=== PATIENT | male | born 1960 | race Caucasian/White ===

== ENCOUNTER → 2018-09-28 | Outpatient (CLI) | payer BC ==
--- NOTE | 2018-09-28 15:15 | CTL ---
EXAMINATION TYPE: CT Low Dose Lung DATE OF EXAM ORDERED: 09/28/2018 HISTORY: Long-term tobacco use. Lung cancer screening CT DLP: [address] CTDI: 1.76 mGy Automated exposure control for dose reduction was used. SCREENING VISIT: Initial study COMPARISON: None TECHNIQUE: Low dose computed tomography scan was performed through the chest at 1 mm thick sections a nd reconstructed images in the coronal plane at [address] DIAGNOSTIC QUALITY: Satisfactory FINDINGS: LUNG NODULES: None. Some tree-in-bud nodularity inferior lateral aspect right upper lobe near coronal series 8 image 37 i s present. No nodules greater than 4 mm in size are seen. LUNGS: COPD: Severity: Mild to moderate most prominent in apices with bilateral bleb formation Fibrosis: Severity: Mild biapical pleural/parenchymal scarring. Additional focal moderate scarring in the lingula just above diaphragm axial image 251. Lymph nodes: No greater than 1 cm Other findings: Ascending aorta measures up to 3.7 cm in diameter axial image 30 series 3. Prominent right and left pulmonary arteries are noted. Suspect underlying pulmonary artery hypertension. BILATERAL PLEURAL SPACE: Effusion: None Calcification: None Thickening: None Pneumothorax: None HEART: Heart Size: Normal Coronary calcification: Moderate Pericardial effusion: None OTHER FINDINGS: Upper abdomen: None Bony thorax: Exaggerated thoracic kyphosis upper thoracic spine with mild multilevel anterior spurrin g. Supraclavicular region: None Other: None IMPRESSION: No suspicious nodules. Possible acute atypical infection inferior lateral right upper lob e. Correlate clinically. FOLLOW UP CT CHEST RECOMMENDATION: Annual low-dose lung screening CT CT LUNG RAD: Lung-Rad 2 Benign Appearance or Behavior
== END | disposition home or self-care (01) ==
LOC: RADCTMAIN 14:22
PROVIDERS: ATTEND Family Medicine
DX: Z12.2 Encounter for screening for malignant neoplasm of respiratory organs (principal); Z87.891 Personal history of nicotine dependence

== ENCOUNTER → 2020-07-26 | Outpatient (CLI) | payer BC ==
--- NOTE | 2020-07-26 13:55 | CTL ---
EXAMINATION TYPE: CT Low Dose Lung DATE OF EXAM ORDERED: 07/26/2020 HISTORY: History of tobacco use. Lung cancer screening CT DLP: [address] CTDI: 1.76 mGy Automated exposure control for dose reduction was used. SCREENING VISIT: Yes COMPARISON: Low-dose lung CT 09/28/2018 TECHNIQUE: Low dose computed tomography scan was performed through the chest at 1 mm thick sections a nd reconstructed images in the coronal plane at [address] DIAGNOSTIC QUALITY: Satisfactory FINDINGS: LUNG NODULES: No suspicious pulmonary nodules. There are some redemonstrated are slightly more conspicuous somewhat linear opacities of the lung bas es along the vasculature or bronchials, at the inferomedial right middle lobe (5:236-222), anterior i nferior left upper lobe (5:251), and anterior inferior left lower lobe (7:291). LUNGS: COPD: Severity: Mild, with paraseptal emphysematous bulla at the lung apices. There is bronchiectasis . Fibrosis: Severity: Mild Lymph nodes: None Other findings: Paraseptal emphysema RIGHT PLEURAL SPACE: Effusion: None Calcification: None Thickening: None Pneumothorax: None LEFT PLEURAL SPACE: Effusion: None Calcification: None Thickening: None Pneumothorax: None HEART: Heart Size: Normal Coronary calcification: Moderate Pericardial effusion: None OTHER FINDINGS: Upper abdomen: None Bony thorax: Increased thoracic kyphosis and vertebral body hemangiomas. Supraclavicular region: None Other: None IMPRESSION: 1. No suspicious pulmonary nodules. 2. Emphysematous changes with bronchiectasis and peribronchial and perivascular somewhat linear nodul ar opacities. FOLLOW UP CT CHEST RECOMMENDATION: Annual low-dose lung CT screening CT LUNG RAD: Lung-Rad 2 Benign Appearance or Behavior
== END | disposition home or self-care (01) ==
LOC: RADCTMAIN 09:36
PROVIDERS: ATTEND Family Medicine
DX: Z12.2 Encounter for screening for malignant neoplasm of respiratory organs (principal); J43.9 Emphysema, unspecified; J47.9 Bronchiectasis, uncomplicated; Z87.891 Personal history of nicotine dependence

== ENCOUNTER → 2020-08-20 | Outpatient (CLI) | payer BC ==
--- NOTE | 2020-08-20 11:38 | NM ---
"EXAMINATION TYPE: NM stress cardiolite complete DATE OF EXAM: 08/20/2020 COMPARISON: NONE HISTORY: Chest pain TECHNIQUE: After the intravenous administration of 9.5 mCi Tc 99m Sestamibi - Rest images obtained 6 0 minutes post injection. The patient exercised using a ART protocol and 1 minute prior to peak e xercise was injected with 24.3 mCi Tc 99m Sestamibi - Stress images obtained 30 minutes post injectio n. FINDINGS: Targeted heart rate was achieved during performance of the study. Review of stress and rest SPECT ana ges demonstrates decreased uptake along the inferior wall left ventricle on both stress and rest imag es, along the inferolateral left ventricle there is some decreased uptake more so on stress than on r est images. Gated analysis shows normal wall motion with an estimated left ventricular ejection frac tion of 69 %. IMPRESSION: Stress-induced left ventricular myocardial ischemia in a ric-infarct distribution as described, susp ect prior infarct along the inferior wall of the left ventricle, consider echocardiographic correlati on for elevated ejection fraction A Yellow level critical message alert has been initiated for Tyler Torres MD via the [employer] 36 0 | Critical Results System on 08/20/2020 11:33 AM. This message alert has been sent to Tyler Torres MD via the preferences provided by the clinician for the receipt of Radiology Critical Findings. [facility] [id number]."
--- NOTE | 2020-08-20 13:05 | EST ---
EXERCISE STRESS AGE: 60 SEX: M HT: 5'7" WT: 150 lbs. PROTOCOL: Cardiolite Francisco STAGE: 4 DURATION OF EXERCISE: 10:00 HEART RATE REST: 67 BLOOD PRESSURE REST: 117/87 MAXIMUM HEART RATE ACHIEVED: 144 MAXIMUM BLOOD PRESSURE: 188/80 85% MPHR: 134 100% MPHR: 158 METS: 11.7 CLINICAL INFORMATION: \\INDICATION Chest pain. Baseline EKG shows sinus rhythm, normal axis, normal intervals. Patient exercised on Francisco protocol for a total of 10 minutes, achieving 11 METS, 91% of predicted maximal heart rate without chest pain. At peak exercise, there was 1.[address]-segment depression noted in the inferolateral leads. CONCLUSION: 1. Good exercise tolerance. 2. Abnormal stress test by EKG criteria. 3. Cardiolite portion of the stress test will be reported separately. GLOL / ALEJANDRAN: [id number] /
== END | disposition home or self-care (01) ==
LOC: RADNMMAIN 08:08
PROVIDERS: ATTEND Family Medicine
DX: I25.9 Chronic ischemic heart disease, unspecified (principal); I25.84 Coronary atherosclerosis due to calcified coronary lesion
CPT/HCPCS: 93017; 78452; A9500

== ENCOUNTER → 2020-08-23 | Day surgery (SDC) | payer BC ==
[2020-08-22 11:12] VITALS: BMI 23.5
[~2020-08-23] MED LIST: ALPRAZolam 0.25 MG TAB PO PRN; ALPRAZolam 0.5 MG TAB PO PRN; ASPIRIN 325 MG TAB PO ONE; HEPARIN SODIUM 1,000 UN/ML (10ML VL) IV ONE; IOPAMIDOL-370 125ML BTL INJ ONE; LIDOCAINE 1% INJ 10MG/ML (20 ML MDV) SQ ONE; MIDAZOLAM 2 MG/2 ML VIAL IVP ONE; NITROGLYCERIN SL TABS 0.4 MG TAB SUBLINGUAL PRN; RX INFO: IV CONTRAST WAS GIVEN 1 EACH MISC MISCELLANE PRN; SODIUM CHLORIDE 0.9% 1,000 ML IV SCH; SODIUM CHLORIDE 0.9% 1,000 ML in EMPTY BAG 1 BAG IV ONE
[2020-08-23 08:55] VITALS: RESP 18; TEMP 98
[2020-08-23 09:26] LABS: Basophils # (A) 0.1 k/uL (0-0.2); Basophils % (A) 1 %; Eosinophils # (A) 0.1 k/uL (0-0.7); Eosinophils % (A) 1 %; HCT 48.5 % (39.0-53.0); HGB 15.7 gm/dL (13.0-17.5); Lymphocytes # (A) 1.4 k/uL (1.0-4.8); Lymphocytes % (A) 23 %; MCH 29.3 pg (25.0-35.0); MCHC 32.3 g/dL (31.0-37.0); MCV 90.5 fL (80.0-100.0); Mean Platelet Volume 6.8; Monocytes # (A) 0.4 k/uL (0-1.0); Monocytes % (A) 7 %; Neutrophils # (A) 4.1 k/uL (1.3-7.7); Neutrophils % (A) 67 %; Platelet Count 279 k/uL (150-450); RBC 5.36 m/uL (4.30-5.90); RDW 12.2 % (11.5-15.5); WBC 6.2 k/uL (3.8-10.6)
[2020-08-23 09:46] LABS: African American GFR (CKD) >90 (>60 ml/min/1.73 sqM); Anion Gap 6 mmol/L; Blood Urea Nitrogen 17 mg/dL (9-20); Calcium 9.6 mg/dL (8.4-10.2); Carbon Dioxide 28 mmol/L (22-30); Chloride 103 mmol/L (98-107); Glucose 107 mg/dL (74-99); Non-African American GFR(CKD) 86 (>60 ml/min/1.73 sqM); Potassium 4.2 mmol/L (3.5-5.1); Sodium 137 mmol/L (137-145)
[2020-08-23] MEDS: VERAPAMIL SYRINGE (5 MG/10 ML) INTRAARTER ONE ×2 (12:14→12:24)
[2020-08-23 14:47] VITALS: PULSE 52
[2020-08-23 15:26] VITALS: BP 108/64
--- NOTE | 2020-08-23 18:59 | CC ---
CARDIAC CATHETERIZATION REPORT DATE OF SERVICE: 08/23/2020 PERFORMING PHYSICIAN: Enrique Fang M.D. PROCEDURES PERFORMED: 1. Selective right and left coronary angiogram. 2. Left heart catheterization. INDICATION: This is a 60-year-old gentleman with hypertension and dyslipidemia who was experiencing symptoms of chest pain with exertion and underwent myocardial perfusion imaging stress test and that revealed inferior ischemia. Because of that, heart catheterization was advised. APPROACH: Right radial artery. COMPLICATIONS: None. LEVEL OF SEDATION: Moderate, with sedation length of 14 minutes. PROCEDURE DESCRIPTION: After obtaining informed consent, the patient was brought to the cardiac cath lab manager. The right radial artery was cannulated using micropuncture technique. The micropuncture wire passed easily. Then I placed a 6-[place] Lucian sheath. After that I gave the patient 2 mg of verapamil IA and 5,000 units of heparin IV. Selective right and left coronary angiogram was performed using JR4 and JL3.5 catheters. Left heart catheterization was performed using a 5-[place] Lucian pigtail catheter. The procedure was completed without any complication. SELECTIVE CORONARY ANGIOGRAM: 1. The right coronary artery is a medium-caliber vessel. It is a codominant vessel. The RCA is angiographically normal. 2. The left main is angiographically normal. It bifurcates into LCX and LAD. 3. The LCX is a large-caliber vessel. It is a codominant vessel. The left circumflex is calcified. It does have only mild disease. Proximally it gives rise to the first obtuse marginal branch, which appeared to be angiographically normal. In the mid it gives rise to a second obtuse marginal branch, which seems to be also angiographically normal. The circumflex distally bifurcates into PDA and PLV branches. Both appeared to be angiographically normal. 4. The LAD is a large-caliber vessel with mild diffuse disease, and it is calcified as well. The LAD gives rise to the first and second diagonal branches and both appeared to be angiographically normal. 5. HEMODYNAMICS: The LVEDP was about 4 mmHg without significant gradient across the aortic valve. CONCLUSION: 1. Calcified right and left coronary systems. 2. Codominant right and left coronary systems. 3. Mild nonobstructive coronary artery disease. 4. Normal LVEDP. POST-PROCEDURE MANAGEMENT: 1. Medical treatment. 2. Followup with the patient. MMODL / IJN: [id number] /
--- NOTE | 2020-08-23 19:35 | LTR ---
August 23, 2020 To: Dr. Tyler Torres Re: Tima Rucker (56) Dear Dr. Torres: Mr. Tima Rucker underwent today heart catheterization and that revealed mild nonobstructive coronary artery disease. With the above, I would recommend a conservative medical approach and aggressive cholesterol control as well as risk factor modifications. I want to thank you for allowing me to participate in his care and please do not hesitate to call if you have any question or concern. Sincerely, Enrique Fang M.D. BEBE / JANE: [id number] /
== END ==
LOC: CATHCVL 08:19
PROVIDERS: ATTEND Internal Medicine Interventional Cardiology
DX: I25.10 Atherosclerotic heart disease of native coronary artery without angina pectoris (principal); R07.89 Other chest pain; R94.39 Abnormal result of other cardiovascular function study; I10 Essential (primary) hypertension; E78.5 Hyperlipidemia, unspecified; Z79.899 Other long term (current) drug therapy; Z87.891 Personal history of nicotine dependence; Z79.82 Long term (current) use of aspirin; Z82.49 Family history of ischemic heart disease and other diseases of the circulatory system
CPT/HCPCS: 93458; 80048; 85025; C1769; C1894; J2250; J2001; J1644; Q9967